=== PATIENT | male | born 1960 | race Caucasian/White ===

== ENCOUNTER 2022-12-19 07:30 | Inpatient (IN) ==
[2022-12-12 10:59] LABS: Basophils # (Auto) 0.05 K/mcL (0.00-0.30); Basophils % (Auto) 0.9 % (0.0-2.0); Eosinophils % (Auto) 1.8 % (0.0-7.0); Hematocrit 40.7 % (40.1-51.0); Hemoglobin 13.6 g/dL (13.7-17.5); Lymphocytes # (Auto) 1.17 K/mcL (1.50-4.80); Lymphocytes % (Auto) 20.6 % (15.5-49.0); Mean Cell Volume 96.7 fL (80.0-100.0); Mean Corpuscular HGB Conc 33.4 g/dL (31.0-36.0); Mean Platelet Volume 10.7 fL (8.8-12.5); Monocytes # (Auto) 0.61 K/mcL (0.10-0.90); Monocytes % (Auto) 10.8 % (1.0-12.0); Neutrophils % (Auto) 65.7 % (38.0-78.0); Platelet Count 210 K/mcL (140-440); RBC 4.21 M/mcL (4.63-6.08); WBC 5.7 K/mcL (4.5-11.0)
[2022-12-12 11:36] LABS: Appearance,Urine CLEAR (Clear); Bilirubin,Urine Negative (Negative); Color,Urine YELLOW; Culture Indicated,Urine No; Glucose,Urine (UA) Negative (Negative); Ketones,Urine Negative (Negative); Leukocyte Esterase,Urine Negative /uL (Negative); Nitrate,Urine Negative (Negative); Protein,Urine Negative (Negative); Specific Gravity,Urine 1.014 (1.000-1.035); Urine Blood Negative (Negative); Urobilinogen,Urine Negative
[2022-12-12 11:53] LABS: ALT/SGPT 25 U/L (<40); AST/SGOT 22 U/L (<40); Albumin 4.1 gm/dL (3.2-5.2); Albumin/Globulin Ratio 1.7 (1.0-2.3); Alkaline Phosphatase 82 U/L (39-117); Bilirubin,Total 0.2 mg/dL (0.1-1.0); Blood Urea Nitrogen 14 mg/dL (8-23); Calcium 9.6 mg/dL (8.6-10.4); Carbon Dioxide 22 mmol/L (22-30); Chloride 109 mmol/L (96-108); Globulin 2.4 gm/dL (2.2-3.7); Glomerular Filtration Rate 80; Glucose 94 mg/dL (70-105)
[2022-12-12 13:20] LABS: Estimated Average Glucose(eAG) 117 mg/dL; Hemoglobin A1C 5.7 % Hgb (4.0-6.0)
--- NOTE | 2022-12-13 12:00 | EKG ---
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
[~2022-12-19 07:30] MED LIST: CELECOXIB 200 MG CAPSULE PO SCH; PREGABALIN 75 MG CAPSULE PO SCH; ceFAZolin 2 GM in DEXTROSE 5% IN WATER 50 ML IV SCH; oxyCODONE 10 MG TAB.ER.12H PO SCH
[2022-12-19] MEDS ORDERED: LIDOCAINE HCL/PF 100 MG/5 ML SYRINGE IV ONE (14:48)
[2022-12-19] MEDS ORDERED: MAGNESIUM SULFATE 2 GM/50 ML BAG IV ONE (14:48)
[2022-12-19] MEDS ORDERED: fentaNYL 100 MCG/2 ML VIAL IV ONE (14:48)
[2022-12-19] MEDS ORDERED: ONDANSETRON 4 MG/2 ML VIAL ONE (14:48)
[2022-12-19] MEDS ORDERED: GLYCOPYRROLATE 0.2 MG/ML VIAL IV ONE (14:48)
[2022-12-19] MEDS ORDERED: ePHEDrine 50 MG/5 ML SYRINGE (ANEST) IV ONE (14:48)
[2022-12-19] MEDS ORDERED: KETAMINE 50 MG/ML Syringe (ANEST) IV ONE (14:48)
[2022-12-19] MEDS ORDERED: ROPIVACAINE HCL/PF 20 ML VIAL IJ ONE (14:48)
[2022-12-19] MEDS ORDERED: DEXAMETHASONE 10 MG/ML VIAL ONE (14:48)
[2022-12-19] MEDS ORDERED: TRANEXAMIC ACID 1,000 MG/10 ML VIAL ONE (14:48)
[2022-12-19] MEDS ORDERED: PROPOFOL 200 MG/20 ML VIAL IV ONE (14:48)
[2022-12-19] MEDS ORDERED: PHENYLephrine 1 MG/10 ML SYRINGE (ANEST) ONE (14:48)
[2022-12-19] MEDS ORDERED: LACTATED RINGERS 250 ML IV PRN (17:30)
[2022-12-19] MEDS ORDERED: PROMETHAZINE 25 MG/ML VIAL IV PRN (17:30)
[2022-12-19] MEDS ORDERED: METHOCARBAMOL 1,000 MG/10 ML VIAL IV PRN (17:30)
[2022-12-19] MEDS ORDERED: LACTATED RINGERS 1,000 ML IV SCH (17:30)
[2022-12-19] MEDS ORDERED: MEPERIDINE 25 MG/ML VIAL IV PRN (17:30)
[2022-12-19] MEDS ORDERED: IPRATROPIUM/ALBUTEROL 3 ML AMPUL.NEB NEB PRN (17:30)
[2022-12-19] MEDS ORDERED: HYDROmorphone 0.5 MG/0.5 ML SYRINGE IV PRN (17:30)
[2022-12-19] MEDS ORDERED: diphenhydrAMINE 50 MG/ML VIAL IV PRN (17:30)
[2022-12-19] MEDS ORDERED: ONDANSETRON 4 MG/2 ML VIAL IV PRN ×2 (17:30→17:39)
[2022-12-19] MEDS ORDERED: NALOXONE HCL 0.4 MG/ML VIAL IV PRN (17:30)
[2022-12-19] MEDS ORDERED: ACETAMINOPHEN 1,000 MG/100 ML BAG IV ONE (17:30)
[2022-12-19] MEDS ORDERED: fentaNYL 100 MCG/2 ML VIAL IV PRN (17:30)
[2022-12-19] MEDS ORDERED: KETOROLAC 30 MG/ML VIAL IV PRN (17:39)
[2022-12-19] MEDS ORDERED: BENZOCAINE/MENTHOL 1 LOZENGE PO PRN (17:39)
[2022-12-19] MEDS ORDERED: TRANEXAMIC ACID 1,000 MG/10 ML VIAL IV ONE (17:39)
[2022-12-19] MEDS ORDERED: FLEETS ADULT ENEMA PR PRN (17:39)
[2022-12-19] MEDS ORDERED: POLYETHYLENE GLYCOL 3350 17 GM PACKET PO PRN (17:39)
[2022-12-19] MEDS ORDERED: HYDROmorphone 1 MG/ML SYRINGE IV PRN (17:39)
[2022-12-19] MEDS ORDERED: ACETAMINOPHEN 325 MG TABLET PO PRN (17:39)
[2022-12-19] MEDS ORDERED: MAGNESIUM HYDROXIDE 30 ML ORAL.SUSP PO PRN (17:39)
[2022-12-19] MEDS ORDERED: BISACODYL 10 MG SUPP.RECT PR PRN (17:39)
[2022-12-19] MEDS ORDERED: METHOCARBAMOL 750 MG TABLET PO PRN (17:39)
--- NOTE | 2022-12-19 17:39 | Brief Operative Note ---
Brief Operative Note Date of procedure: 12/19/22 Pre-op diagnosis: Loose femoral component s/p prior total hip arthroplasty Post-op diagnosis: same Procedure: Revision left total hip arthroplasty of femoral component Grafts/Implants: Yes (Abbie Insignia 7 hi offset stem, +2.5 36mm delta head ball) Anesthesia: spinal and GLMA Findings: loose femoral stem with pedestal distally Complications: none Surgeon: Juan Antunez Records Technician: Dick Hester Estimated blood loss (cc): 500 Specimens Removed/Pathology: other (femoral head and stem) Condition: stable Disposition: PACU
--- NOTE | 2022-12-19 17:44 | XRay Report ---
HISTORY: FINDINGS: IMPRESSION: 0.7 minutes of fluoroscopy time was used. Interpreted and Authenticated by: Parth Zurita 12/19/22
--- NOTE | 2022-12-19 18:05 | Discharge Summary ---
Discharge Provider Provider IMPORTANT FOLLOW-UP INFORMATION FOR PCP: Patient information: Note initiated : 12/19/22 at 6:05 pm Service Date, if different from initiated Date: [] Patient: Issac Taylor 62 y/o M admitted on 12/19/22 for Left Anterior Total Hip Arthroplasty Revision . Chief Complaint: [] Date of admission: 12/19/22 09:30 Discharge date: 12/20/22 Primary care physician: Dmitry Winston MD COURSE Hospital Course Hospital course: Pt was admitted for a L revision JATIN. Pt discharged to home post-op day 1. ASA for DVT prophyl axis. f/u 2 weeks. Discharge diagnosis: L painful JATIN Time Spent with Patient Time attestation: Total time spent providing and/or coordinating discharge services: Time spent: Less than 30 minutes Physical Examination Exam Clean and dry: Yes Weight bearing status: as tolerated Discharge Instructions - JATIN Patient Instructions Total Hip Protocol: Follow activity instructions as provided by Physical Therapy. Dressing Care: May shower in 2 days Discharge Plan Patient/Caregiver Discharge Instructions Activity: increase activity as tolerated Diet: Regular Diet Prescriptions: New aspirin 81 mg tablet,delayed release (DR/EC) 81 mg PO BID Qty: 60 0RF acetaminophen [Acetaminophen Pain Relief] 500 mg tablet 1,000 mg PO TID Qty: 90 0RF meloxicam 7.5 mg tablet 7.5 mg PO QDAY Qty: 30 0RF methocarbamol 750 mg tablet 750 mg PO Q8H Qty: 30 0RF oxycodone 5 mg tablet 5 mg PO Q6H PRN (Reason: pain) Qty: 30 0RF Continued escitalopram oxalate 10 mg tablet 10 mg PO QDAY omeprazole 20 mg capsule,delayed release(DR/EC) 20 mg PO QDAY Centrum Silver Ultra Men's 300-600-300 mcg tablet 1 tab PO QDAY pravastatin 20 mg Tablet 20 mg PO QHS Other Ambulatory Orders: Physical Therapy at Discharge - JATIN (Routine) Location: None Selected Ordered By: Dick Cabral (ONCE) Location: None Selected Ordered By: Dick Hester Prescription drug monitoring program results: PDMP reviewed and no issues identified Follow Up Plan Follow up with: Juan Antunez MD [Physician] - 01/04/23 11:30 am Dick Hester PA-C [Physician Section Laborer] - Patient Disposition: Home, Self-Care Rehab Potential: Good Overall status at discharge: patient is progressing back to baseline Discharge Orders: Discharge Order (Routine); Ordered 12/20/22 Ordered By: Dick Hester Pending Pending Pending: Resuscitation Status Resuscitate (Full Code) Diet Regular Diet Start SatDec 19 1741
--- NOTE | 2022-12-19 18:44 | XRay Report ---
HISTORY: Postop revision of the left hip prosthesis FINDINGS: There is a well-positioned left total hip prosthesis. The femoral component has been replaced since the prior exam done on 10/15/22. There is no fracture or reabsorption of bone around the hardware. 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 IMPRESSION: Well-positioned left hip prosthesis Interpreted and Authenticated by: Parth Zurita 12/19/22
[2022-12-19] MEDS: oxyCODONE IR 5 MG TABLET PO PRN (19:20)
[2022-12-19] MEDS: 0.9 % SODIUM CHLORIDE 1,000 ML IV SCH (19:34)
[2022-12-19] MEDS: ASPIRIN 81 MG TAB.CHEW PO SCH (20:44)
[2022-12-19] MEDS: DOCUSATE SODIUM 100 MG CAPSULE PO SCH (20:44)
[2022-12-19] MEDS ORDERED: ATORVASTATIN 10 MG TABLET PO SCH (21:00)
[2022-12-19] MEDS ORDERED: SENNOSIDES 1 TABLET PO SCH (21:00)
[2022-12-19] MEDS: ceFAZolin 1 GM VIAL IV SCH (22:14)
[2022-12-19] MEDS: 0.9 % SODIUM CHLORIDE 10 ML SYRINGE IV SCH (22:16)
[2022-12-20] MEDS: 0.9 % SODIUM CHLORIDE 1,000 ML IV SCH ×2 (02:15→08:46)
[2022-12-20] MEDS: ceFAZolin 1 GM VIAL IV SCH (05:53)
[2022-12-20] MEDS: 0.9 % SODIUM CHLORIDE 10 ML SYRINGE IV SCH (05:53)
[2022-12-20] MEDS: ASPIRIN 81 MG TAB.CHEW PO SCH (08:43)
[2022-12-20] MEDS: DOCUSATE SODIUM 100 MG CAPSULE PO SCH (08:43)
[2022-12-20] MEDS ORDERED: MULTIVIT,THER IRON,CA,FA & MIN 1 TABLET PO SCH (09:00)
[2022-12-20] MEDS ORDERED: ESCITALOPRAM 10 MG TABLET PO SCH (09:00)
[2022-12-20] MEDS ORDERED: OMEPRAZOLE 20 MG CAPSULE PO SCH (09:00)
--- NOTE | 2022-12-20 09:29 | Operative Note ---
DATE OF OPERATION: 12/19/2022 DATE OF PROCEDURE: PREOPERATIVE DIAGNOSIS: Left hip loose femoral component, status post prior total hip arthroplasty. POSTOPERATIVE DIAGNOSIS: Left hip loose femoral component, status post prior total hip arthroplasty. PROCEDURE PERFORMED: Revision left total hip arthroplasty of the femoral component, placing a Dolomite Insignia size 7 high-offset femoral stem with a +2.5, 36 mm delta ceramic head ball through a direct anterior approach. SURGEON: Juan Antunez MD ADMEASURER: Ric Hester PA-C. This providers expertise and technical skill were required throughout the case. The PA assisted with preoperative coordination, intraoperative retraction, wound closure, and dressing and splint application, as well as postoperative documentation and care coordination. ANESTHESIA: Spinal plus general. DRAINS: None. SPECIMENS: Removed femoral stem and femoral head ball as well as culture of the left hip joint and culture of the left femoral canal. COMPLICATIONS: None. ESTIMATED BLOOD LOSS: 500 mL. POSTOPERATIVE CONDITION: Stable. INDICATIONS FOR SURGERY: This is a 62-year-old male who around 9 months ago had undergone a left total hip arthroplasty. He had developed increasing left thigh pain over time and radiographs showed radiolucent lines around the femoral component. A bone scan revealed significant increased uptake of the femoral component suggesting loosening. He has been worked up for infection with normal CRP and sed rate. FINDINGS AT SURGERY: There was no evidence of infection. There was a loose femoral stem. Post implantation showed what appeared to be a stable implant with relative normalization of leg length and offset. PROCEDURE IN DETAIL: The patient had been seen preoperatively and informed consent had been obtained after discussion of risks and benefits of surgery, which included, but not limited to, bleeding, possibly requiring transfusion; infection, possibly requiring implant removal and prolonged IV antibiotics; injury to nerves, blood vessels, other surrounding structures, anesthetic risks; incomplete or no resolution of symptoms, dislocation, leg length discrepancy, DVT and pulmonary embolus risks; and the possibility of needing further revision surgery. He understood these risks and wished to proceed. Correct operative site was marked and the patient received spinal anesthesia. He was then taken to the operating room and LMA general performed. He was then carefully positioned on the [place] table. The left hip and groin were then carefully prepped and draped in normal sterile fashion and a timeout was performed verifying patient name, operative site, and plan. Ioban was used to cover all skin surfaces. A previous anterior approach incision was used with a scalpel through skin and subcutaneous tissue. There was quite a bit of scar tissue. I dissected down to what looked like the probable tensor fascia and then I undermined circumferentially. IrriSept was irrigated and then the ring retractor was placed. We then incised through this scar layer that we felt fascia and then dissected medial to the muscle belly, which was quite scarred. I then used fluoroscopy to identify the neck of the prosthesis and then placed blunt Cobra retractors superior and inferior margin. We encountered a copious amount of scar tissue that I worked through excising the anterior capsule. Finally, I was able to expose the neck of the stem. A culture was taken at this point; however, there was really minimal joint effusion and no evidence of infection. I tried to release scar tissue to expose the medial neck of the femur and also out towards the trochanter. I then worked my way towards the acetabulum and again removed capsule anteriorly to expose the femoral head. This was quite tedious and time consuming and difficult. Once I finally had exposure of the joint I then placed three turns of traction on the leg and then used a drift punch to disimpact the femoral head from the prosthesis. I then attempted to dislocate the femur and this was still too scarred, so I had to work some more releases before I was able to finally dislocate the femoral stem, which left the femoral head lodged in the acetabulum. I went ahead and released traction and externally rotated the leg, which allowed me better visualization and then I was able with a drift punch placed within the femoral head component to dislocate this out and remove it. I then tried to release around the posterior neck of the femur and also out to the greater trochanter before dropping the leg down and adducting. Again at this point, exposure was very difficult. I ended up having to make a T in the tensor fascia about the level of the trunnion to allow the trunnion to come out of the wound anteriorly and again continued to work the posterolateral capsule out to the greater trochanter. At this point, I had done pretty much all the capsule releases that I could. Exposure was limited, but enough that I could start examining the stem. There was some mobility of the stem, although it was not entirely loose. I was able to wiggle it just with my hand. I also noted anterior and posterior, there was fibrous tissue between the implant and the bone, which I used a curette to clean out. I then used a curved Jason osteotome to impact along the medial neck. I used the flexible osteotome anteriorly and posteriorly to try and get any bony ingrowth released. At this point, I was able to hook the slap hammer over the trunnion and with backslash was able to remove the femoral stem. This gave me much better visualization of the proximal femur, obviously, and I then was able to work a little more capsular release along the posterior neck of the femur. I then curetted the fibrous tissue from the canal. Since our bone envelope was essentially normal, I elected to stick with the ACTIS stem, so I started broaching with the ACTIS. I got up to a size 5 and started feeling like we were hanging up a little distally before we had rotational stability. I then elected to try and ream with flexible reamers distally. A ball-tip guidewire was passed down the femoral canal and I was then able to pass it very far so fluoroscopy was brought in and revealed that there was a pedestal at the tip of the stem was that not visualized on his most recent x-rays, which were 2 months prior. I ended up using a threaded guidewire under fluoroscopy to pass through the pedestal and drill through and then I was able to start reaming sequentially with flexible reamers to get through the pedestal. Once we had reamed through the pedestal and then went back and went up to a size 6 broach. This was able to seat down at our neck cut; however, I was able seat just at the neck cut. I then trialed a high offset head with a +5 head ball. The hip reduced fairly easily. I checked with fluoroscopy and it appeared that the leg length and offset was relatively equal when we compared side to side x-rays of the nonoperative and operative hip. I then redislocated and upon inspection noted that there was some slight rotational mobility that was not there previously, so I felt this stem size was not adequate. I then removed this and broached up to a size 7, which did give good rotational stability. However, it did seat about 4 mm off of the neck cut. I went ahead and opened a 7 high-offset stem. I irrigated the femoral canal and joint with IrriSept. After waiting a minute, I then pulse lavaged copiously with saline, and then impacted the stem and it did seat essentially where the broach did about 4 mm proud of the collar medially. Due to this sitting up significantly higher plus the 7 stem having a longer neck than the 6 stem size I trialed a +2.5 head ball. The hip reduced with satisfactory tension, although not excessively loose and we then checked fluoroscopy images. This filled the femur nicely. The leg looked minimally lengthened and offset looked similar, so I went ahead and dislocated again. The stem was irrigated and then carefully dried and then a +2.5, 36 mm delta ceramic head ball was impacted. We again checked stability of the stem, which was very stable. The hip was then reduced and final fluoro images were taken. There were no visible cracks or evidence of fracture in the femur. We irrigated the joint copiously with IrriSept, after a minute copiously pulse lavaged with saline, and then our fascial scar layer was closed with two running #1 Vicryl stitches. Ring retractor was removed. IrriSept was irrigated, after a minute pulse lavaged with saline, and then the layer was closed down with Vicryl and then 2-0 Monocryl was used for subcutaneous closure and jeniffer for skin. Xeroform and a sterile dressing were applied. The patient was awakened, extubated, and transferred to recovery in stable condition. [email or web address] Job ID: [id number] Doc ID: [id number] Juan Antunez MD
[2022-12-20] MEDS: oxyCODONE IR 5 MG TABLET PO PRN (12:01)
== END 2022-12-20 12:10 | disposition home or self-care (01) | DRG 468 ==
LOC: MEDSUR 09:30
PROVIDERS: ADMIT Orthopaedic Surgery; ATTEND Physician Assistant Surgical